=== PATIENT | male | born 1990 | race African-American/Black ===

== ENCOUNTER 2022-03-22 20:15 | Emergency (ER) | payer OTHER ==
[~2022-03-22] VITALS: Ht 172.7 cm; Wt 84.0 kg
[2022-03-22 20:22] VITALS: BP 123/83
[2022-03-22] MEDS ORDERED: ONDANSETRON 4MG ODT PO STA (20:38)
[2022-03-22] MEDS ORDERED: ONDA4TAB50 MT (21:28)
== END 2022-03-22 21:37 | disposition home or self-care (01) ==
LOC: ER 20:15
DX: R11.0 Nausea (principal); R42 Dizziness and giddiness; F12.10 Cannabis abuse, uncomplicated
CPT/HCPCS: 99283; Q0162